=== PATIENT | female | born 1940 | race Caucasian/White ===

== ENCOUNTER 2017-02-11 20:27 | Emergency (ER) | payer OTHER ==
[~2017-02-11] VITALS: Ht 149.9 cm; Wt 51.8 kg
[~2017-02-11 20:27] MED LIST: ALAVERT10 M1 PO; AMBIEN10 MG PO; ANUCORT-HC25 MG PR; ATIVAN1 MG PO; BREO ELLIPTA I1 EACH IH; CARDIZEM60 MG PO; CLARITIN,ALAVAR10 MG PO; DALIRESP500 MCG PO; DUONEB 2.5-0.5 M3 ML AEROSOL; FLOVENT 22120 INHALA IH; IBUPROFEN200 M1 PO; LEVOFLOXACIN750 MG PO; LORATADINE10 M2 PO; NASACORT10.8 ML BOTH NARES; PANTOPRAZOLE SO40 MG PO; PREDNISONE10 MG PO; PROAIR HFA8.5 GM IH; PROAIR RESPICL90 MCG IH; SINGULAIR10 MG PO; SPIRIVA1 INHALATI IH; SUMATRIPTAN SUC50 MG PO; TESSALON PERLE100 MG PO; ZITHROMAX500 MG PO; ZOFRAN4 MG PO
[2017-02-12 00:09] VITALS: BP 149/84
== END 2017-02-12 00:09 | disposition home or self-care (01) ==
LOC: EME 20:27 → EXP 20:27
DX: G43.909 Migraine, unspecified, not intractable, without status migrainosus (principal); J44.9 Chronic obstructive pulmonary disease, unspecified; K21.9 Gastro-esophageal reflux disease without esophagitis; Z99.81 Dependence on supplemental oxygen; Z87.891 Personal history of nicotine dependence; Z85.828 Personal history of other malignant neoplasm of skin; Z88.1 Allergy status to other antibiotic agents; Z88.2 Allergy status to sulfonamides
CPT/HCPCS: 70450; 99281; 99285; J1100; J1885; J2765; J3010; J7030

== ENCOUNTER 2017-02-24 06:09 | Emergency (ER) | payer OTHER ==
[~2017-02-24] VITALS: Ht 149.9 cm; Wt 49.5 kg
[2017-02-24] MEDS ORDERED: TIZANIDINE HCL2 M1 PO (06:21)
[2017-02-24] MEDS ORDERED: ZANTAC75 M1 PO (06:22)
[2017-02-24 06:55] LABS: MCH 30.7 PG (29.0-34.0); MCHC 33.8 G/DL (30.0-36.0); MCV 90.7 FL (83-99); MEAN PLAT.VOLUME 9.4 uM^3 (9.5-12.4); PLATELET COUNT 182 K/uL (156-360); RBC DIS.WIDTH-CV 12.1 % (11.8-14.6); RED BLOOD COUNT 3.75 M/uL (3.80-5.20); WHITE BLOOD COUNT 5.6 K/uL (4.1-10.2)
[2017-02-24 07:35] LABS: ALKALINE PHOSPHATASE 83 IU/L (3-129); ANION GAP 9 MEQ/L (2-14); CHLORIDE 97 MEQ/L (99-109); GFR ESTIMATE (CALCULATED) > 59 mL/min/; GLUCOSE 101 mg/dL (70-99); POTASSIUM 4.1 MEQ/L (3.7-5.4); SAMPLE HEMOLYSIS CHECK 0; SAMPLE ICTERIC CHECK 0; SAMPLE LIPEMIA CHECK 0; SODIUM 133 MEQ/L (136-147); TOTAL BILIRUBIN 0.4 MG/DL (0.0-1.0); UREA NITROGEN (BUN) 10 mg/dL (9-23)
[2017-02-24 07:39] LABS: TROP-I INTERPRETATION NEGATIVE; TROPONIN-I < 0.01 ng/mL (0.0-0.30)
[2017-02-24 08:19] LABS: ADD MIUA? YES; BILIRUBIN NEGATIVE; BLOOD SMALL; COLOR STRAW ((YELLOW)); GLUCOSE (STRIP) NEGATIVE; KETONES 5; LEUKOCYTES NEGATIVE; NITRITE NEGATIVE; PROTEIN (STRIP) NEGATIVE; SPECIFIC GRAVITY 1.006 (1.000-1.030); UROBILINOGEN 0.2 MG/DL (0.2-1.0)
[2017-02-24 08:28] LABS: BACTERIA NONE SEEN /HPF; CALCIUM OXALATE CRYSTALS 3+ /HPF; EPITHELIAL CELLS NONE SEEN /HPF; MUCUS TRACE /LPF; RED BLOOD CELLS NONE SEEN /HPF (0-5); UCUL ADDED? NO; WHITE BLOOD CELLS 0-5 /HPF (0-5)
[2017-02-24] MEDS ORDERED: BENTYL20 MG PO (09:15)
[2017-02-24 09:54] VITALS: BP 158/70
== END 2017-02-24 09:55 | disposition home or self-care (01) ==
LOC: EME 06:09
PROVIDERS: Nurse Practitioner Family
DX: R10.11 Right upper quadrant pain (principal); G89.29 Other chronic pain; M54.5 Low back pain; R11.0 Nausea; J44.9 Chronic obstructive pulmonary disease, unspecified; Z99.81 Dependence on supplemental oxygen; K21.9 Gastro-esophageal reflux disease without esophagitis; Z87.891 Personal history of nicotine dependence; F32.9 Major depressive disorder, single episode, unspecified; Z85.828 Personal history of other malignant neoplasm of skin; Z88.8 Allergy status to other drugs, medicaments and biological substances
CPT/HCPCS: 71020; 74020; 80053; 81003; 84484; 85027; 93005; 99281; 99284